=== PATIENT | male | born 1975 | race Caucasian/White ===

== ENCOUNTER 2016-10-09 09:05 | Emergency (ER) | payer OTHER ==
[2016-10-09 09:22] VITALS: BP 124/77; PULSE 75; TEMP 97.7; BMI 27.1
--- NOTE | 2016-10-09 09:29 | PDOC ---
History of Present Illness - General Chief Complaint: Injury Stated Complaint: RIGHT ANKLE PAIN & SWELLING Time Seen by Provider: 10/09/16 09:12 History Source: Patient Exam Limitations: No Limitations - History of Present Illness Initial Comments: 10/09/16 09:17 40-year-old male with no past medical history presents to the emergency department for twisting right ankle yesterday. Patient had misstepped going down a stair. Denies other trauma. Reports right pain in the ankle. Denies numbness and weakness. Has been walking with an antalgic gait. Past History - Past Medical History Allergies/Adverse Reactions: Allergies Allergy/AdvReac Type Severity Reaction Status Date / Time aspirin Allergy Severe Difficulty Verified 10/09/16 09:11 Breathing Home Medications: Ambulatory Orders Oxycodone HCl/Acetaminophen [Percocet 5-325 mg Tablet] 1 tab PO Q6H PRN #12 tab MDD 4 10/09/16 Review of Systems - Review of Systems Able to Perform ROS?: Yes Comments:: 10/09/16 09:29 GENERAL/CONSTITUTIONAL: No fever, weakness. HEAD, EYES, EARS, NOSE AND THROAT: No change in vision. No ear pain or discharge. No sore throat. CARDIOVASCULAR: No chest pain or shortness of breath. RESPIRATORY: No cough, wheezing, or hemoptysis. GASTROINTESTINAL: No abdominal pain, nausea, vomiting, diarrhea, or decreased PO intolerance. GENITOURINARY: No dysuria, frequency, or change in urination. MUSCULOSKELETAL: +Right ankle pain SKIN: No rash NEUROLOGIC: No headache, vertigo, loss of consciousness, or change in strength/ sensation. ENDOCRINE: No increased thirst. No abnormal weight change. HEMATOLOGIC/LYMPHATIC: No anemia, easy bleeding, or history of blood clots. ALLERGIC/IMMUNOLOGIC: No hives or skin allergy. *Physical Exam - Physical Exam Comments: 10/09/16 09:29 GENERAL: Awake, alert, and fully oriented, in no acute distress. HEAD: No signs of trauma EYES: PERRLA, EOMI, sclera anicteric, conjunctiva clear ENT: Auricles normal inspection, hearing grossly normal, nares patent, oropharynx clear without exudates. EXTREMITIES: RLE: No tenderness along the right tib/fib. No tenderness at the 5th metatarsal or navicular bone. Swelling appreciated, particularly around the lateral malleolus. TTP lateral malleolus. No joint instability appreciated. Sensation intact throughout. 2+ dp pulse. NEUROLOGICAL: Cranial nerves II through XII grossly intact. Normal speech, normal gait SKIN: Warm, Dry, normal turgor, no rashes or lesions noted. Procedures - Splinting Splint Location: Right: Ankle Pre-Proc Neuro Vasc Exam: normal Hand-Made Type: orthoglass Splint Type: Yes: Posterior Post-Proc Neuro Vasc Exam: normal Danyel Bandage: 6" Sling: No Complications: No Post splint xray: No ED Treatment Course - RADIOLOGY Radiology Studies Ordered: Category Date Time Status ANKLE-RIGHT [RAD] Stat Radiology 10/09/16 09:12 Ordered Medical Decision Making - Medical Decision Making 10/09/16 09:31 I suspect high degree ankle sprain. However, fails [place] ankle rules. Obtain right ankle xray. Pt took tylenol prior to arrival to ED. *DC/Admit/Observation/Transfer Diagnosis at time of Disposition: High ankle sprain Qualifiers: Encounter type: initial encounter Laterality: right Qualified Code(s): S93.431A - Sprain of tibiofibular ligament of right ankle, initial encounter - Discharge Dispostion Disposition: HOME Condition at time of disposition: Good Admit: No - Prescriptions Prescriptions: Oxycodone HCl/Acetaminophen [Percocet 5-325 mg Tablet] 1 tab PO Q6H PRN #12 tab MDD 4 PRN Reason: Pain Level 6-10 - Referrals Referrals: Dean Garnica MD [Staff Physician] - - Patient Instructions Printed Discharge Instructions: DI for Ankle Sprain Additional Instructions: Your x-rays negative for fractures. You likely have a high-grade ankle sprain. Please wear the splint. It is important that you follow up with an orthopedist. Use crutches. Elevate the leg as much you can. Ice as needed. Take 650 mg of Tylenol every 4 hours as needed for pain. For additional pain relief, he may take a tablet of Percocet every 6 hours as needed. Do not take Percocet with Tylenol together as Percocet contains Tylenol. When you return to [place], please make an appointment with orthopedist.
== END 2016-10-09 10:47 | disposition home or self-care (01) ==
LOC: FER 09:05
PROC: 2W3SX1Z Immobilization of Right Foot using Splint (ICD-10-PCS; principal; 2016-10-09)
DX: S93.431A Sprain of tibiofibular ligament of right ankle, initial encounter (principal); X58.XXXA Exposure to other specified factors, initial encounter; Y93.9 Activity, unspecified; Y92.9 Unspecified place or not applicable
CPT/HCPCS: 73610-TC-RT; 99282-25